=== PATIENT | female | born 1930 | race Caucasian/White ===

== ENCOUNTER 2017-03-05 08:00 | Inpatient (IN) | payer MEDICARE, BC ==
[~2017-03-05] VITALS: Ht 147.3 cm; Wt 60.0 kg
--- NOTE | ~2017-03-05 | CON ---
PATIENT'S NAME: CHLOE HAYNES [facility] AGE: 86 Y [address] ROOM: [address] [address] LOCATION: [facility] [place] ADMIT DATE: 03/05/2017 Consultation DISCHARGE DATE: FAMILY PHYSICIAN: Renetta Melgoza DO ATTENDING PHYSICIAN: KPAIL QUINTERO DATE OF CONSULTATION: 03/06/2017 REFERRING PHYSICIAN: Estevan Nguyen MD CHIEF COMPLAINT: Cholangitis. HISTORY OF PRESENT ILLNESS: Chloe Haynes is an 86-year-old female who was transferred to [facility] yesterday from [place] with findings of cholangitis. The patient states that on FridayMarch 04 around 7 p.m. she started having pain across the upper abdomen, it wrapped around into her back. The pain kept getting worse. She vomited twice. She subsequently called her son and was taken to the [facility]. In [place], her lab work showed white blood cell count 14.7, hemoglobin 13.7, total bilirubin of 1.4, alkaline phosphatase 122, AST 1371, ALT 799. She had cardiac enzymes that were normal. She had a CT scan of the abdomen and pelvis that showed a 7.3 mm stone within the distal common bile duct, with dilatation of the common bile duct measuring up to 12 mm. There was some intrahepatic biliary dilatation, biliary ductal dilatation as well. Additional larger stone was present within the gallbladder. No pericholecystic fluid was seen. There was an incidental finding of a small hiatal hernia. There was also a 5.7 x 4.8 mm subpleural ground-glass left lower lobe pulmonary nodule. The patient was transferred to [facility] for Gastroenterology and surgical evaluation. The patient did undergo an ERCP yesterday. Stones were noted in the common bile duct. A stent was placed. The patient had received high-dose aspirin on admission in [place] with concerns for possible [place] and therefore the sphincterotomy could not be extended in order to get the stones removed. The patient states that she had feeling well now. She denies any pain. Denies any nausea or vomiting. Now that she knows that she has gallstones, she believes that she has had some problems in the past mostly with indigestion. She states that it would never lasts very long. She never had severe pain like this. She has never noticed jaundice. The patient's daughter states that Dr. Mix had recommended repeating the ERCP in a few weeks with stone removal followed by laparoscopic cholecystectomy at that time. PAST MEDICAL HISTORY: PATIENT'S NAME: CHLOE HAYNES [facility] AGE: 86 Y [address] ROOM: [place] [address] LOCATION: [facility] ADMIT DATE: 03/05/2017 Consultation DISCHARGE DATE: FAMILY PHYSICIAN: Renetta Melgoza DO ATTENDING PHYSICIAN: KAPIL QUINTERO ALLERGIES: NONE. MEDICATIONS: Include, 1. Norvasc 10 mg p.o. q.h.s. 2. Artificial Tears one drop ophthalmic b.i.d. p.r.n. dry eyes. 3. Vitamin D3 1000 units p.o. daily. 4. Aspirin low-dose 81 mg p.o. q.h.s. 5. PreserVision one capsule p.o. b.i.d. 6. Erie half to one tablet p.o. b.i.d. p.r.n. pain. 7. Lotensin 20 mg p.o. q.h.s. 8. Amoxicillin 2000 mg p.o. one time p.r.n. dental prophylaxis. 9. Centrum Silver 1 tablet p.o. b.i.d. 10. Fish oil 1200 mg p.o. daily. 11. Biotin 5000 mcg p.o. daily. 12. Flaxseed oil 1000 mg p.o. daily. 13. Magnesium oxide 400 mg p.o. daily. 14. Tylenol extra-strength 250 mg p.o. b.i.d. p.r.n. pain. 15. Advil 200 mg p.o. b.i.d. p.r.n. pain. 16. MiraLAX 17 g p.o. daily. ILLNESSES: Include hypertension, arthritis with chronic back pain that required a steroid injection a couple weeks ago. She had a small skin cancer removed from her face. She also has macular degeneration. OPERATIONS: Include, 1. Left total hip in September 2012 after a fracture. 2. Cataracts. 3. Tubal ligation. 4. ERCP. The patient has never had a colonoscopy. SOCIAL HISTORY: The patient is an 86-year-old female, who lives alone in her own house. She has family nearby. She is a lifetime nonsmoker and does not consume alcohol. FAMILY HISTORY: Mother had a stroke. No family history of cancer. REVIEW OF SYSTEMS: The patient denies any recent coughs or colds. No shortness of breath or chest pain. Denies any prior abdominal pain. Her bowels tend to be more PATIENT'S NAME: CHLOE HAYNES [facility] AGE: 86 Y [address] ROOM: [address] [place] [id number] LOCATION: [facility] ADMIT DATE: 03/05/2017 Consultation DISCHARGE DATE: FAMILY PHYSICIAN: Renetta Melgoza DO ATTENDING PHYSICIAN: KAPIL QUINTERO constipated, but gets along well, taking MiraLAX daily. No pain, frequency, urgency of urination. PHYSICAL EXAMINATION: VITAL SIGNS: Temperature is 97.6, T-max was 101.3 on admission, blood pressure 126/65, pulse 57, respirations 14. GENERAL: An 86-year-old female, who is alert, oriented, pleasant, cooperative. She does wear glasses. EYES EARS, NOSE, AND THROAT: Otherwise grossly normal. LUNGS: Clear. HEART: Regular. ABDOMEN: Bowel sounds are present. Abdomen is mildly distended. It is soft and nontender. No masses are noted. She has a small scar just below the umbilicus from a tubal ligation. NEURO: The patient appears to move all extremities equally. LAB WORK: Today shows white blood cell count down to 22.8 from 37.1 yesterday, hemoglobin 11.3, hematocrit 34.0, platelets 184. CMP: Sodium 142, potassium 4.1, chloride 108, CO2 27, glucose 106, BUN 14, creatinine 0.7, total bilirubin is up to 3.2 from 2.4 yesterday, alkaline phosphatase 116, AST 535, ALT 828, procalcitonin is 7.23. ASSESSMENT: An 86-year-old female with, 1. Cholangitis status post ERCP with stent placement, but unable to remove common bile duct stones. 2. Cholelithiasis. 3. Hypertension. SUMMARY: I discussed with the patient, recommendations for removal of the gallbladder. I discussed with her that we will await Gastroenterology's recommendations in regard to have the repeat ERCP followed by laparoscopic cholecystectomy. I discussed the operation along with the expected postoperative recovery. I expect that she will be able to go home either the same day or the next day following the procedure. I discussed the risks of bleeding, infection, injury to other structures including the bowel or common bile duct. I also discussed the risk for bile leak. Discussed risks for heart problems, lungs problems, etc. I discussed potential side effect of loose stools after having gallbladder removed. Again, we will await gastroenterology decision on timing of the repeat ERCP and will coordinate removal of the gallbladder accordingly. The patient's questions and concerns were addressed. Dr. Nguyen will be evaluating the patient momentarily, is involved in assessment and plan and is available for supervision. PATIENT'S NAME: CHLOE HAYNES [facility] AGE: 86 Y [address] ROOM: [place] [address] LOCATION: [facility] ADMIT DATE: 03/05/2017 Consultation DISCHARGE DATE: FAMILY PHYSICIAN: Renetta Melgoza DO ATTENDING PHYSICIAN: KAPIL QUINTERO ANNI MEIER PA-C FOR MD ANASTASIYA SALAZAR/niurka /[id number] d: 03/06/17 1253 t: 03/13/17 1944, CONSULTATION REPORT
--- NOTE | ~2017-03-05 | CON ---
PATIENT'S NAME: JAMES CARBAJAL [facility] AGE: 86 Y [address] ROOM: [address] [address] LOCATION: [facility] [place] ADMIT DATE: 03/05/2017 Consultation DISCHARGE DATE: FAMILY PHYSICIAN: Renetta Melgoza DO ATTENDING PHYSICIAN: KAPIL QUINTERO DATE OF CONSULTATION: 03/05/2017 REFERRING PHYSICIAN: Estevan Nguyen MD REFERRING PROVIDER: Kapil Quintero MD. REASON FOR CONSULTATION: Choledocholithiasis, cholangitis. HISTORY OF PRESENT ILLNESS: This is a very pleasant, 86-year-old female, who was recently transferred from [facility]. The patient's states that over the past "few days" she began having significant lower back pain. This intensified earlier this morning that she states the pain wrapped around to her upper abdomen, located in her right and upper left quadrant as well as her mid epigastric area. She denied any fever at home, though when she was evaluated in the emergency room at [place], she was febrile there. She did complain of some mild chills. Denies any associated nausea or vomiting. On evaluation at the emergency room in [place], the patient was found to have significantly elevated liver function test including an ALT of 799, AST of 1371, alkaline phosphatase was elevated at 122, and total bilirubin was slightly elevated at 1.4. The patient's white blood cell count was also elevated at 14.7 and hemoglobin was stable. The patient then underwent a CT abdomen and pelvis that did show a small hiatal hernia and a 7.3 mm stone located in the distal common bile duct with secondary dilation of the common bile duct. There was also intrahepatic ductal dilation seen with additional cholelithiasis. The patient was transferred to [facility] for further evaluation. The patient was seen and examined. She denies any acute nausea, vomiting, fever, or chills at this time. On examination and on admission to [facility], she did have a fever of 101.3. She did receive a dose of Zosyn prior to transfer from [facility]. The patient states that the pain has slightly improved since admission in the assistance of pain medication. The patient denies any acute chest pain, chest pressure, or shortness of breath. She did receive aspirin in 324 mg initially around 4:30 this morning while at the emergency room as initially they thought this may be cardiac related. She denies any blood thinners at home as well. PAST MEDICAL HISTORY: PATIENT'S NAME: JAMES CARBAJAL [facility] AGE: 86 Y [address] ROOM: [id number] [place], [place] [address] LOCATION: [facility] ADMIT DATE: 03/05/2017 Consultation DISCHARGE DATE: FAMILY PHYSICIAN: Renetta Melgoza DO ATTENDING PHYSICIAN: KAPIL QUINTERO Depression, hypertension, arthritis, history of fractures including ORIF of the left hip, abnormal liver function tests, choledocholithiasis, cholelithiasis, and migraines. PAST SURGICAL HISTORY: Left total hip in September 2012 and right cataract removed. SOCIAL HISTORY: The patient denies any tobacco use or illicit drug use. The patient is and lives alone. Denies any ongoing toxic habits. FAMILY HISTORY: The patient's mother had a massive CVA and hypertension. The patient's father did not have any significant health problems. The patient's sister in a motor vehicle accident. She denies any known family history of gastrointestinal diseases to her knowledge. ALLERGIES: NO KNOWN MEDICATION ALLERGIES. CURRENT MEDICATIONS: Please refer to the medication administration record. REVIEW OF SYSTEMS: All-point review of systems was completed, all were negative except for those identified in the history of present illness. PHYSICAL EXAMINATION: GENERAL: A very pleasant, 86-year-old female, lying in bed, who appears to be in no acute distress. VITAL SIGNS: Temperature 101.3, blood pressure 143/64, oxygen saturations 92%, and pulse 73. SKIN: [place], warm, dry. No jaundice. HEENT: Head is normocephalic and atraumatic. Pupils are equal, round, and reactive to light. Sclerae are clear, mildly icteric. Oral mucosa is pink and moist. No thyromegaly. NECK: Soft and supple. CARDIOVASCULAR: Normal S1, S2. RESPIRATORY: Respirations even and unlabored. LUNGS: Clear to auscultation. Slightly diminished in the bilateral lobes. ABDOMEN: Soft, round, and mildly distended. Bowel sounds are positive x4 quadrants. Tender throughout, specifically in the upper and lower quadrants. MUSCULOSKELETAL: No muscle weakness or atrophy. EXTREMITY: No edema. NEUROLOGIC: Grossly nonfocal. PATIENT'S NAME: JAMES CARBAJAL [facility] AGE: 86 Y [address] ROOM: [address] [place], [place] [address] LOCATION: [facility] [place] ADMIT DATE: 03/05/2017 Consultation DISCHARGE DATE: FAMILY PHYSICIAN: Renetta Melgoza DO ATTENDING PHYSICIAN: KAPIL QUINTERO LABORATORIES AND DIAGNOSTICS: Laboratory obtained at the outside facility at [facility] show white blood cell count of 14.7, hemoglobin 13.7, hematocrit of 41.7, and platelet of 238. Chemistry panel includes a CO2 of 26.9, BUN of 16 creatinine 0.7, glucose of 171, calcium of 8.6, AST elevated at 1371, ALT of 799, alkaline phosphatase of 122, total bilirubin 1.4, albumin of 4.0, sodium 137, potassium 3.4, and chloride of 100. Cardiac enzymes at the outside facility were negative. CT was also completed showing a 7.3 mm stone in the distal common bile duct with secondary dilation of the CBD as well as intrahepatic ductal dilation. Additional cholelithiasis is present as well as a small hiatal hernia. There was a 5.7 x 4.8 mm subpleural left lower lobe ground-glass noncalcified nodule. Laboratory obtained at [facility] is currently pending at this time. ASSESSMENT AND PLAN: Again, this is a very pleasant, 86-year-old female, who was transferred from [facility] with cholangitis secondary to known choledocholithiasis. The patient was given Zosyn prior to transfer. She will begin on Invanz at this time. Secondary to her elevated liver function tests, suspected cholangitis, as well as CT findings, the patient will need to undergo an endoscopic retrograde cholangiopancreatography rather soon for clearance of the common bile duct stone and to relieve obstruction. The patient did receive aspirin this morning secondary to initial thought for cardiac workup. A stent may only be placed to the common bile duct, though this will be determined intraoperatively. Risks, benefits, and alternatives were discussed with the patient as well as the patient's family per Dr. Billy Mix. Further recommendations to be given status post endoscopic retrograde cholangiopancreatography. Thank you for this consultation. GUNJAN HATFIELD, GAYATHRI FOR MD GABRIELLA ALCANTARA/jackelinl /[id number] d: 03/05/17 2314 t: 03/17/17 1351, CONSULTATION REPORT
--- NOTE | ~2017-03-05 | HP ---
PATIENT'S NAME: SOLOMON [facility] AGE: 86 Y [address] ROOM: [place] [address] LOCATION: [facility] [place] ADMIT DATE: 03/05/2017 History & Physical DISCHARGE DATE: FAMILY PHYSICIAN: Renetta Melgoza DO ATTENDING PHYSICIAN: KAPIL QUINTERO DATE OF SERVICE: CHIEF COMPLAINT: Abdominal pain. HISTORY OF PRESENT ILLNESS: This is an 86-year-old lady with a past medical history only significant for hypertension, presented to the [place] [facility] with abdominal pain, which started yesterday, located in the epigastrium, in the right upper quadrant, pressure-like, constant in nature, acute in onset, rated 8/10, relieved with morphine, down to 4/10, associated with nausea and two episodes of nonbloody, nonbilious emesis. Also, associated with fever and chills. Not associated with any constipation or lightening of stools. On further inquiry, she said she does have some shortness of breath secondary to sinus problems, which have been a chronic problem. Denies any chest pain, any palpitations, any dizziness, any headache, any trouble swallowing, but does complain of excessive thirst. She does not complain of any new PND, orthopnea, or leg swelling. REVIEW OF SYSTEMS: All other systems reviewed and were negative except for what is mentioned in the HPI. ALLERGIES: NO KNOWN DRUG ALLERGIES. PAST MEDICAL HISTORY: 1. Hypertension. 2. Hip surgery. MEDICATIONS: 1. Tylenol. 2. Amlodipine. 3. Aspirin. 4. Benazepril. 5. Biotin. 6. Vitamin D. 7. Fish oil. 8. Flaxseed. PATIENT'S NAME: SOLOMON [facility] AGE: 86 Y [address] ROOM: [place] [id number] LOCATION: [facility] [place] ADMIT DATE: 03/05/2017 History & Physical DISCHARGE DATE: FAMILY PHYSICIAN: Renetta Melgoza DO ATTENDING PHYSICIAN: KAPIL QUINTERO 9. Daisetta. 10. Ibuprofen. 11. Magnesium oxide. 12. Multivitamins. SOCIAL HISTORY: Lives in [place] by herself. Never a smoker. No alcohol or drug abuse. FAMILY HISTORY: Significant for mom dying from massive intracerebral bleed. PHYSICAL EXAMINATION: VITAL SIGNS: Temperature 101.3, blood pressure 143/64, heart rate of 73, saturating 92% on room air. GENERAL: No acute distress, alert and oriented x3. HEENT: Head is atraumatic, normocephalic. Eyes, positive icterus. No pallor. Oropharynx, dry mucous membranes. CARDIOVASCULAR: S1 and S2. No murmurs, gallops, or rubs. LUNGS: Clear to auscultation bilaterally. ABDOMEN: Soft, tender in the epigastrium as well as right upper quadrant. Rebound tenderness present. Negative Coleman sign. Bowel sounds are present. EXTREMITIES: No clubbing, cyanosis, or edema. PSYCH: Normal affect, mood, and speech. MUSCULOSKELETAL: No muscle tenderness or joint swelling noted. LYMPHATICS: No lymphadenopathy or lymphangitis noticed. ENDOCRINE: No cushingoid features or thyromegaly present. NEUROLOGIC: Cranial nerves 2 through 12 intact. No motor sensory deficit. LABORATORY DATA: Lab work from outside facility showed white count of 14. BMP was remarkable for potassium of 3.4. Her AST was 1371, and ALT was 799. Alkaline phosphatase being 122 and bilirubin of 1.4. A CAT scan of the abdomen was done, which was positive for cholelithiasis as well as stone in the CBD, with CBD dilatation of 7.6 mm, with intrahepatic as well as extrahepatic dilatation. Chest x-ray was done, which did not reveal any acute intrathoracic changes. EKG showed normal sinus rhythm without any acute ST-T wave changes. ASSESSMENT AND PLAN: 1. Acute cholangitis. 2. Biliary obstruction. 3. Elevated liver enzymes. 4. Cholelithiasis. PATIENT'S NAME: JAMES CARBAJAL [facility] AGE: 86 Y [address] ROOM: [address] [address] LOCATION: [facility] [place] ADMIT DATE: 03/05/2017 History & Physical DISCHARGE DATE: FAMILY PHYSICIAN: Renetta Melgoza DO ATTENDING PHYSICIAN: KAPIL QUINTERO 5. Essential hypertension. 6. Hypokalemia. PLAN: We are going to admit this lady for inpatient. Aggressive intravolume resuscitation will be started along with ertapenem. Lipase level and amylase levels will be obtained. Lactic acid and procalcitonin have been ordered. GI consultation has been obtained for possible ERCP versus MRCP to correct biliary obstruction further. We are going to replace her potassium. Keep her n.p.o. for now. Provide adequate pain as well as nausea control. SCDs for DVT prophylaxis for now. General Surgery consultation for cholecystectomy can be decided tomorrow after the GI consultation. The patient is DNR/DNI. MD IRENE ALANIZ/niurka /[id number] D: [id number] T: [id number] HISTORY & PHYSICAL
--- NOTE | ~2017-03-05 | DS ---
PATIENT'S NAME: JAMES CARBAJAL [facility] AGE: 86 Y [address] ROOM: [address] [place], [place] [address] LOCATION: [facility] ADMIT DATE: 03/05/2017 Discharge Summary DISCHARGE DATE: 03/13/2017 FAMILY PHYSICIAN: Renetta Melgoza DO ATTENDING PHYSICIAN: Julio Cesar Tom ADMISSION DIAGNOSIS: Sepsis secondary to acute cholangitis. DISCHARGE DIAGNOSIS: Sepsis secondary to acute cholangitis plus choledocholithiasis. SECONDARY DIAGNOSES: Elevated transaminases, cholelithiasis, essential hypertension, hypokalemia, postoperative pain, and pancreatitis post ERCP. PROCEDURE PERFORMED: ERCP on March 06 as well as laparoscopic cholecystectomy on March 11. PRESENTING COMPLAINT: The patient is a very pleasant and high functioning 86- year-old female, who presented on March 06 with 1 to 2 days of right upper quadrant abdominal pain as well as fevers and chills. She denied any other contributing symptoms. HOSPITAL COURSE: On admission, the patient was found to be febrile to 101.3 with stable heart rate and blood pressure, found to have a white blood cell count of 37, potassium of 3.4, AST 1371, ALT 799, alkaline phosphatase 122, bilirubin 1.4. CAT scan of the abdomen showed cholelithiasis as well as a common bile duct stone and CBD dilation of 7.6 mm with intrahepatic and extrahepatic dilation. The patient was admitted and started on IV ertapenem as well as IV fluid resuscitation for sepsis. An initial lipase was 1099. Lactate 1.5 on admission. Upon admission given findings of choledocholithiasis, GI was consulted. On the , the patient underwent ERCP with inability to retrieve stone and subsequently course was complicated by post-ERCP pancreatitis with worsening epigastric abdominal pain. The patient was monitored on IV antibiotics as well as fluids over the next several days with slow and steady improvement in the symptoms. General Surgery was also consulted and subsequently performed laparoscopic cholecystectomy on March 11. Postoperative course was uneventful. The patient is noted to continue to have common bile duct stone and a stent was placed during the ERCP. Plans at this time are for continued recovery from cholecystectomy, followed subsequently by repeat GI evaluation as an outpatient in [place] at [facility] for stent removal and stone removal. At the time of discharge, the patient has been off antibiotics for 24 hours, remains afebrile, and doing well. Postop tenderness is improving as expected. We will continue home medications for essential hypertension and arrange GI followup. PATIENT'S NAME: JAMES CARBAJAL [facility] AGE: 86 Y [address] ROOM: [address] [place], [place] [address] LOCATION: [facility] ADMIT DATE: 03/05/2017 Discharge Summary DISCHARGE DATE: 03/13/2017 FAMILY PHYSICIAN: Renetta Melgoza DO ATTENDING PHYSICIAN: Julio Cesar Tom CONDITION: Stable. PHYSICAL EXAMINATION: VITAL SIGNS: Most recent vital signs at the time of discharge: Temperature 98.4, pulse 73, respiratory rate 18, blood pressure 156/69, and saturating 96% on room air. GENERAL: Alert and oriented, pleasant, up in chair, comfortable. HEAD: Normocephalic, atraumatic. CARDIOVASCULAR: No carotid bruit. Heart regular rate and rhythm. No murmurs appreciated. 2+ bilateral lower extremity pulses. Faint abdominal bruit appreciated. ABDOMEN: Soft. Minimally tender to moderate palpation diffusely, worse in the right upper quadrant. Laparoscopic incisions clean and dry, bandaged. EXTREMITIES: Without edema bilaterally. MOST RECENT LABS PRIOR TO DISCHARGE: Include white count, which has improved from 37 on arrival to 11.2. Blood cultures were without growth during stay. Hypokalemia improved to 3.7 at the time of discharge. Creatinine is stable at 0.5. Alkaline phosphatase 100, AST 19, ALT 72, and total bilirubin 0.8. DISPOSITION: To [facility] bed today. DISCHARGE MEDICATIONS: Per medication reconciliation. Will not be discharged on antibiotics. No significant changes to home meds. DISCHARGE INSTRUCTIONS: Advance diet as tolerated. Activity as tolerated. PT at facility with OT as well. FOLLOW-UP: with Dr. Nguyen in Surgery in 2 to 3 weeks and PCP in 1 to 2 weeks. TIME: I spent greater than 35 minutes on the date of discharge coordinating discharge plans. MD DANO BRUMFIELD/niurka /[id number] CC: Renetta Melgoza DO d: 03/14/17 0409 t: 03/14/17 1523, DISCHARGE SUMMARY
--- NOTE | ~2017-03-05 | OR ---
PATIENT'S NAME: JAMES CARBAJAL [facility] AGE: 86 Y [address] ROOM: [place] [address] LOCATION: GPCU ADMIT DATE: 03/05/2017 OR/Procedure Report DISCHARGE DATE: FAMILY PHYSICIAN: Renetta Melgoza DO ATTENDING PHYSICIAN: KAPIL QUINTERO SURGEON: Estevan Nguyen MD INTELLIGENCE SUPPORT OFFICER: Shyann Zeng PA-C DATE OF PROCEDURE: 03/11/2017 PREOPERATIVE DIAGNOSIS: Cholelithiasis with choledocholithiasis, status post stent placement. POSTOPERATIVE DIAGNOSIS: Cholelithiasis with choledocholithiasis, status post stent placement. PROCEDURE PERFORMED: Laparoscopic cholecystectomy. FINDINGS: The gallbladder had a large number of stones present with a single very large stone. ESTIMATED BLOOD LOSS: Less than 20 mL. COMPLICATIONS: None. INDICATIONS: The patient is an 86-year-old female, who presented with signs and symptoms of cholangitis. She had an ERCP and stent placement. I was asked to perform cholecystectomy. We discussed this versus waiting. We discussed the risks, benefits, and alternatives. Ultimately, she wished to proceed with surgery. DESCRIPTION OF PROCEDURE: The patient was taken into the operating room. She was supine, given IV sedation. The abdomen was prepped with ChloraPrep and sterilely draped. Local anesthetic was infiltrated just superior to the umbilicus. A transverse incision was created. The abdomen was elevated. Veress needle was inserted. Pneumoperitoneum was induced. Following this, a 5-mm trocar was inserted followed by insertion of the camera. There was no injury from initial trocar placement. Three more trocars were then positioned, an 11 mm in epigastric and two 5 mm right subcostal ports. Skin overlying the peritoneum was first anesthetized prior to making these incisions. All 3 trocars were inserted under direct visualization. The gallbladder was then grasped, it was elevated over the dome of the liver. The infundibulum was grasped and retracted inferiorly and laterally to expose the Calot triangle. The cystic duct and artery were dissected around circumferentially. A critical window was able to be obtained over this. These structures were then doubly clipped and divided. The gallbladder was then PATIENT'S NAME: JAMES CARBAJAL [facility] AGE: 86 Y [address] ROOM: [address] [address] [facility] ADMIT DATE: 03/05/2017 OR/Procedure Report DISCHARGE DATE: FAMILY PHYSICIAN: Renetta Melgoza DO ATTENDING PHYSICIAN: KAPIL QUINTERO removed from liver bed using electrocautery. This was grasped and brought up to the epigastric port site. We attempted to break the stones, however, there was a very large stone present that we were unable to break. We increased the size of our incision in order to deliver this. This was then passed off as specimen. The operative field was inspected. It appeared hemostatic. Clips appeared to be in good position on the cystic duct and artery. The area was irrigated. Fluid was removed. The pneumoperitoneum was then released. The trocars were removed. The trocar sites appeared hemostatic. The fascia of the epigastric port site was approximated with 0 Vicryl suture followed by skin closure of all 4 port sites with 4-0 Monocryl suture. Steri-Strips and sterile dressings were placed. The patient was extubated and sent to recovery in good condition. ESTEVAN MD DAYTON MCNEAL/niurka /[id number] d: 03/11/17 1357 t: 03/13/171946, OPERATIVE SUMMARY
[2017-03-05] MEDS ORDERED: ARTIFICIAL TEAR15 ML OPHTH (09:21)
[2017-03-05] MEDS ORDERED: NORVASC10 MG PO (09:21)
[2017-03-05] MEDS ORDERED: ASPIRIN LO-DOSE81 MG PO (09:22)
[2017-03-05] MEDS ORDERED: PRESERVISION A1 EACH PO (09:22)
[2017-03-05] MEDS ORDERED: VITAMIN D1000 UNIT PO (09:22)
[2017-03-05] MEDS ORDERED: NORCO 5-325 TA1 EACH PO (09:23)
[2017-03-05] MEDS ORDERED: LOTENSIN20 MG PO (09:24)
[2017-03-05] MEDS ORDERED: AMOXICILLIN500 MG PO (09:24)
[2017-03-05] MEDS ORDERED: CENTRUM SILVER1 EAC1 PO (09:25)
[2017-03-05] MEDS ORDERED: FISH OIL 1,2001 EACH PO (09:25)
[2017-03-05] MEDS ORDERED: BIOTIN5000 MCG PO (09:25)
[2017-03-05] MEDS ORDERED: FLAX SEED OIL1000 MG PO (09:26)
[2017-03-05] MEDS ORDERED: MAG-OX-400(241400 MG PO (09:26)
[2017-03-05] MEDS ORDERED: ADVIL200 MG PO (09:27)
[2017-03-05] MEDS ORDERED: TYLENOL EXTRA500 MG PO (09:27)
[2017-03-05] MEDS ORDERED: MIRALAX17 GM PO (09:28)
--- NOTE | 2017-03-05 09:50 | NUR ---
Pt is 86 y/o female admit for gallstones for hospitalist. States no allergies. Resides at home by herself. Hx mac.degeneration,htn,sinus congestion,arthritis, constipation. Came via ambulance from [facility]. Pt alert and oriented x3. Family at bedside.
[2017-03-05 10:06] LABS: HEMATOCRIT 39.7 % (30.0-46.0); HEMOGLOBIN 13.2 g/dL (10.0-15.0); MCH 28.3 pg (27.0-34.0); MCHC 33.2 gm/dL (32.0-36.5); PLATELET COUNT 242 K/uL (150-450); RBC 4.67 M/uL (3.00-5.00); RDW-CV 13.9 % (11.9-14.6); WBC 23.1 K/uL (4.0-11.0)
[2017-03-05 10:30] LABS: ALBUMIN 3.2 gm/dL (3.5-5.0); ANION GAP 13.3 (10.0-19.0); CALCIUM 8.6 mg/dL (8.5-10.5); CREATININE 0.9 mg/dL (0.5-1.1); POTASSIUM 3.3 mMol/L (3.7-5.1); TOTAL BILIRUBIN 2.4 mg/dL (0.0-1.5); TOTAL PROTEIN 6.5 g/dL (6.0-8.4)
[2017-03-05 11:04] LABS: LYMPHOCYTE # 0.5 K/uL (0.8-4.0); LYMPHOCYTE % 2 %; MONOCYTE # 0.7 K/uL (0.0-1.0); SEGMENTED NEUTROPHIL # 14.8 K/uL (1.8-7.8); SEGMENTED NEUTROPHIL % 64 %
[2017-03-05 11:05] LABS: ABSOLUTE NEUTROPHIL CT (ANC) 21.7 K/uL (1.8-7.8); BANDED NEUTROPHIL # 6.9 K/uL (0.0-0.1); BANDED NEUTROPHILS % 30 %
[2017-03-05 12:03] LABS: INR - (THERAPEUTIC) 0.98 (0.92-1.07); PROTIME 10.3 SECONDS (9.8-11.4)
[2017-03-05 16:15] LABS: HEMATOCRIT 37.9 % (30.0-46.0); HEMOGLOBIN 12.7 g/dL (10.0-15.0); MCH 28.6 pg (27.0-34.0); MCHC 33.5 gm/dL (32.0-36.5); MCV 85.4 fl (83.0-98.0); MPV 10.5 fl (9.4-12.4); PLATELET COUNT 229 K/uL (150-450); RBC 4.44 M/uL (3.00-5.00)
[2017-03-05 16:17] LABS: WBC 36.6 K/uL (4.0-11.0)
--- NOTE | 2017-03-05 16:46 | NUR ---
Significant event: Patient arrived to floor at 0840. Is alert and oriented. Is hard of hearing, does not have hearing aides with her. VSS other than temp of 101.3. IV to left wrist with lactated ringers at 150, after 1 liter bolus. is repeating labs this evening. Was admitted for abdominal pain/epigastric pain. Went for an ERCP this morning and stent was placed. Is on clear liquids and advance as tolerated. Has been sleepy since getting back to floor. Dghtr will be back later to spend the night. Pt is a one assist, recommend using walker for steadiness. Normally uses cane at home. Has had no complaints of pain since arrival, no diarrhea, no nausea/vomiting. Cooperative with cares.
[2017-03-05 17:05] LABS: ABSOLUTE NEUTROPHIL CT (ANC) 35.1 K/uL (1.8-7.8); BANDED NEUTROPHIL # 6.6 K/uL (0.0-0.1); BANDED NEUTROPHILS % 18 %; LYMPHOCYTE # 0.4 K/uL (0.8-4.0); LYMPHOCYTE % 1 %; MONOCYTE # 1.1 K/uL (0.0-1.0); SEGMENTED NEUTROPHIL # 28.6 K/uL (1.8-7.8); SEGMENTED NEUTROPHIL % 78 %
[2017-03-05 19:12] LABS: HEMATOCRIT 36.5 % (30.0-46.0); HEMOGLOBIN 12.2 g/dL (10.0-15.0); MCH 28.7 pg (27.0-34.0); MCHC 33.4 gm/dL (32.0-36.5); MCV 85.9 fl (83.0-98.0); MPV 10.6 fl (9.4-12.4); PLATELET COUNT 213 K/uL (150-450); RBC 4.25 M/uL (3.00-5.00); RDW-CV 14.3 % (11.9-14.6)
[2017-03-05 19:16] LABS: WBC 37.1 K/uL (4.0-11.0)
[2017-03-05 20:15] LABS: ABSOLUTE NEUTROPHIL CT (ANC) 36.4 K/uL (1.8-7.8); BANDED NEUTROPHIL # 7.8 K/uL (0.0-0.1); BANDED NEUTROPHILS % 21 %; LYMPHOCYTE # 0.4 K/uL (0.8-4.0); LYMPHOCYTE % 1 %; MONOCYTE # 0.7 K/uL (0.0-1.0); SEGMENTED NEUTROPHIL # 28.6 K/uL (1.8-7.8); SEGMENTED NEUTROPHIL % 77 %
--- NOTE | 2017-03-06 05:01 | NUR ---
Significant Event: ALERT AND ORIENTATED X3 AMBULATES WITH GB WALKER ONE ASSIST. VSS WNL. ON RA. HARD OF HEARING DID NOT BRING HEARING AIDS. IV TO L WRIST LR RUNNING AT 150. DAUGHTER IN ROOM WITH PAITENT. NO COMPLAINTS OF PAIN DISCOMFORT NAUSEA. PLAN IS TO GO HOME TODAY. Follow up:
[2017-03-06 05:46] LABS: BASOPHIL % 0.1 %; HEMOGLOBIN 11.3 g/dL (10.0-15.0); IMMATURE GRANULOCYTE # 0.2 K/uL (0.0-0.3); IMMATURE GRANULOCYTE % 0.8 %; LYMPHOCYTE # 1.1 K/uL (0.8-4.0); LYMPHOCYTE % 4.9 %; MCH 28.8 pg (27.0-34.0); MCHC 33.2 gm/dL (32.0-36.5); MCV 86.5 fl (83.0-98.0); MONOCYTE # 0.8 K/uL (0.0-1.0); MONOCYTE % 3.6 %; MPV 10.8 fl (9.4-12.4); NEUTROPHIL # (ANC) 20.7 K/uL (1.8-7.8); NEUTROPHIL % 90.6 %; NRBC % 0 /100WBC (0-0.00); PLATELET COUNT 184 K/uL (150-450); RBC 3.93 M/uL (3.00-5.00); RDW-CV 14.3 % (11.9-14.6)
[2017-03-06 05:50] LABS: WBC 22.8 K/uL (4.0-11.0)
[2017-03-06 06:07] LABS: ALBUMIN 2.5 gm/dL (3.5-5.0); ANION GAP 11.1 (10.0-19.0); CALCIUM 8.1 mg/dL (8.5-10.5); CREATININE 0.7 mg/dL (0.5-1.1); POTASSIUM 4.1 mMol/L (3.7-5.1)
[2017-03-06 06:11] LABS: TOTAL BILIRUBIN 3.2 mg/dL (0.0-1.5)
--- NOTE | 2017-03-06 11:10 | NUR ---
Introduced self/role to patient and her daughter Coco. She lives in [place], has [employer]. Denied the need for any DME or HHC. Her daughter is a nurse at [employer], [place] and helps her as needed. Patient is hoping to go home soon and reports will have surgery in a few weeks. 1210 Spoke to Debora Nelson after she spoke with GI. Patient should be discharge home tomorrow and surgery in [place] in the near future.
--- NOTE | 2017-03-06 16:10 | NUR ---
Significant event: Patient is alert and oriented. VSS on room air. IV to left wrist fluids decreased to 75mls. This afternoon patient started having shortness of breath and some audible wheezing. Also temp went up to 100.1. Notified PA and orders received for Lasix x1 and decrease fluids to 75mls/hr and Tylenol for fever greater than 100. Tylenol given at 1500. Rechecked temp at 1600 and was 100.4. Did void a large amount. Will continue to monitor this. Pt is a 1-assist with ambulation. Has eaten and tolerated a regular diet. Drinking well. Cooperative with cares.
--- NOTE | 2017-03-07 04:55 | NUR ---
Significant Event: PATIENT IS ALERT AND ORIENTATED VSS ON 1 L O2. IV TO L WRIST FLUIDS AT 75ML/HR. AFEBRILE VSS WNL. CONTINUES TO HAVE SOB WITH AUDIBLE WHEEZES. NO COMPLAINTS OF PAIN OR DISCOMFORT. AMBULATES WITH GB WALKER ONE ASSIST. COOPERATIVE WITH CARES. Follow up:
[2017-03-07 09:39] LABS: BASOPHIL % 0.2 %; EOSINOPHIL # 0.1 K/uL (0.0-0.5); EOSINOPHIL % 0.5 %; HEMOGLOBIN 12.1 g/dL (10.0-15.0); IMMATURE GRANULOCYTE # 0.1 K/uL (0.0-0.3); IMMATURE GRANULOCYTE % 0.6 %; LYMPHOCYTE # 1.2 K/uL (0.8-4.0); LYMPHOCYTE % 6.9 %; MCH 28.9 pg (27.0-34.0); MCHC 33.6 gm/dL (32.0-36.5); MCV 86.1 fl (83.0-98.0); MONOCYTE # 0.3 K/uL (0.0-1.0); MPV 10.8 fl (9.4-12.4); NEUTROPHIL # (ANC) 15.5 K/uL (1.8-7.8); NEUTROPHIL % 89.8 %; NRBC % 0 /100WBC (0-0.00); PLATELET COUNT 169 K/uL (150-450); RBC 4.18 M/uL (3.00-5.00); RDW-CV 14.5 % (11.9-14.6)
[2017-03-07 09:46] LABS: WBC 17.2 K/uL (4.0-11.0)
[2017-03-07 09:59] LABS: ALBUMIN 2.4 gm/dL (3.5-5.0); CALCIUM 8.1 mg/dL (8.5-10.5); CREATININE 0.6 mg/dL (0.5-1.1); TOTAL PROTEIN 5.5 g/dL (6.0-8.4)
[2017-03-07 10:02] LABS: ANION GAP 11.9 (10.0-19.0); POTASSIUM 2.9 mMol/L (3.7-5.1)
--- NOTE | 2017-03-07 16:53 | NUR ---
Significant event: Patient is alert and oriented x3.VSS. on room air. Is SOB with exertion. Does have some audible wheezes. Catheter placed at 1630. IV to left wrist with K+ and Lactated ringers running(200mls/hr). Is on clear liquid diet. Has a history of hypertension, last b/p was 161/89. Does ambulate with one assist. States she "just doesn't feel good" No nausea. Is tender to upper abd area. Did have some shoulder pain and placed a warm blanket and this gave relief. Pt has order for tylenol for temp greater than 100.0. Her last temp was 100.1 and tylenol was given at 1500. Pt dghtr at bedside. Will be transferring to either PCU or ICU as soon as bed is available. Cooperative with cares.
[2017-03-07 21:22] LABS: ALBUMIN 2.4 gm/dL (3.5-5.0); ALK PHOS 142 IU/L (33-138); ANION GAP 11.6 (10.0-19.0); AST 89 IU/L (10-40); BLOOD UREA NITROGEN 6 mg/dL (6-24); CALCIUM 8.3 mg/dL (8.5-10.5); CHLORIDE 108 mMol/L (96-110); CO2 24 mMol/L (22-32); CREATININE 0.4 mg/dL (0.5-1.1); POTASSIUM 3.6 mMol/L (3.7-5.1); SODIUM 140 mMol/L (135-145); TOTAL BILIRUBIN 1.2 mg/dL (0.0-1.5); TOTAL PROTEIN 5.7 g/dL (6.0-8.4)
[2017-03-07 21:23] LABS: ALT 407 IU/L (12-78)
--- NOTE | 2017-03-08 04:45 | NUR ---
PATIENT ARRIVED TO UNIT AT 2238 PER BED WITH STAFF AND FAMILY AT BEDSIDE. THE PATIENT WAS TRANSFERRED TO A HIGHER LEVEL OF CARE FOR FLUID CHANGES. UPON ARRIVAL PATIENT WAS ALERT AND ORIENTED X3. FOLLOWS COMMANDS. DENIES PAIN, RODRIGUEZ, OR N/T. LUNGS WERE C/D THROUGHOUT ON ROOM AIR. TEMP 98.0-70-16-95%-191/79 (113). MCCRARY CATHETER-CLEAR URINE. PIV IN LEFT WRIST WITH LR INFUSING AT 200.
--- NOTE | 2017-03-08 04:51 | NUR ---
Significant Event: PATIENT IS ALERT AND ORIENTED X3. FOLLOWS COMMANDS. DENIES PAIN, RODRIGUEZ, OR N/T. TEMP HAS VARIED FROM 98.0-100.4. PERRLA. GENERALIZED WEAKNESS. HYPERTENSIVE- SBP 170-200'S- CONTROLLED WITH PRN LABETALOL AND HYDRALAZINE. SR WITH PVC'S. ROOM AIR. CLEAR LIQUID DIET-TAKES PILLS WHOLE WITH WATER. LAST BM 03/07-ACTIVE X4. UP WITH 1A. STRICT I&O'S-MCCRARY CATH. L) WRIST PIV INFUSING LR AT 75. Follow up: CONTINUE TO MONITOR AMYLASE AND LIPASE.
[2017-03-08 05:02] LABS: ALBUMIN 2.3 gm/dL (3.5-5.0); ALK PHOS 138 IU/L (33-138); ANION GAP 11.2 (10.0-19.0); AST 61 IU/L (10-40); BLOOD UREA NITROGEN 6 mg/dL (6-24); CALCIUM 8.1 mg/dL (8.5-10.5); CHLORIDE 106 mMol/L (96-110); CO2 23 mMol/L (22-32); CREATININE 0.3 mg/dL (0.5-1.1); POTASSIUM 3.2 mMol/L (3.7-5.1); SODIUM 137 mMol/L (135-145); TOTAL BILIRUBIN 1.1 mg/dL (0.0-1.5); TOTAL PROTEIN 5.6 g/dL (6.0-8.4)
[2017-03-08 05:03] LABS: ALT 344 IU/L (12-78)
[2017-03-08 08:35] LABS: BASOPHIL % 0.3 %; EOSINOPHIL # 0.1 K/uL (0.0-0.5); EOSINOPHIL % 0.5 %; HEMATOCRIT 36.2 % (30.0-46.0); HEMOGLOBIN 12.1 g/dL (10.0-15.0); IMMATURE GRANULOCYTE # 0.1 K/uL (0.0-0.3); IMMATURE GRANULOCYTE % 0.3 %; LYMPHOCYTE # 1.3 K/uL (0.8-4.0); LYMPHOCYTE % 8.5 %; MCH 28.7 pg (27.0-34.0); MCHC 33.4 gm/dL (32.0-36.5); MCV 85.8 fl (83.0-98.0); MONOCYTE # 0.5 K/uL (0.0-1.0); MONOCYTE % 3.5 %; MPV 12.2 fl (9.4-12.4); NEUTROPHIL # (ANC) 13.1 K/uL (1.8-7.8); NEUTROPHIL % 86.9 %; NRBC % 0 /100WBC (0-0.00); PLATELET COUNT 180 K/uL (150-450); RBC 4.22 M/uL (3.00-5.00); RDW-CV 14.2 % (11.9-14.6)
--- NOTE | 2017-03-08 12:03 | NUR ---
A - PT SCREENED D/T LOS/ADVANCED AGE. ABD PAIN. HT: 58" WT: 135# BMI: 27.3. LABS: K+ 3.2, BUN/CR 6/0.3, ALB 2.3, AST 61, ALT 344, AMYLASE 1458, LIPASE 37061, WBC 15.0. MEDS: LACTATED RINGER, INVANZ, NAUSEA. DIET: CLEAR LIQUID x 1. INTAKE: SIPS. NEEDS: 9049-1336 KCAL (20-25 KCAL/KG), 61-74 G PRO (1-1.2 G/KG), 1840 ML FLUID (30 ML/KG). D - INADEQUATE NUTRIENT INTAKE R/T ALTERED GI FUNCTION AEB COMMON BILE DUCT STONES, CLEAR LIQUID DIET, INTAKE RECORD. I - GOAL FOR INCREASED ORAL INTAKE. WILL ADD ENSURE CLEAR TID. M/E - WILL MONITOR INTAKE AND GI FUNCTION. F/U IN 2-4 DAYS.
--- NOTE | 2017-03-08 15:06 | NUR ---
Significant Event:PT IS AAOX3. [place]. NO C/O OF NUMBNESS OR TINGLING. GENERALIZED WEAKNESS. UP 1A GB WALKER. CLEAR TO CLEAR AND DIMINSIHED LUNG SOUNDS. ACTIVE BS. HAS 1+ EDEMA TO LEGS. ACTIVE BS. ABDOMEN HAS NOT BEEN TENDER THIS SHIFT. IS DISTENDED. IV L) WRIST RUNING. STARTED LISINOPRIL TODAY. GAVE LABETOLOL X1 TODAY. ALSO GAVE 40 MEQ OF POTASSIUM TODAY. DAUGHTER AT BEDSIDE. DEMETRA. Follow up:MONITOR BP AND PULSE
[2017-03-09 05:07] LABS: BASOPHIL # 0.1 K/uL (0.0-0.2); BASOPHIL % 0.6 %; EOSINOPHIL # 0.2 K/uL (0.0-0.5); EOSINOPHIL % 1.5 %; HEMATOCRIT 35.3 % (30.0-46.0); IMMATURE GRANULOCYTE # 0.1 K/uL (0.0-0.3); IMMATURE GRANULOCYTE % 0.6 %; LYMPHOCYTE # 1.9 K/uL (0.8-4.0); LYMPHOCYTE % 17.9 %; MCH 28.6 pg (27.0-34.0); MONOCYTE # 0.7 K/uL (0.0-1.0); MPV 10.7 fl (9.4-12.4); NEUTROPHIL # (ANC) 7.6 K/uL (1.8-7.8); NEUTROPHIL % 72.4 %; NRBC % 0 /100WBC (0-0.00); PLATELET COUNT 200 K/uL (150-450); RDW-CV 13.8 % (11.9-14.6); WBC 10.5 K/uL (4.0-11.0)
--- NOTE | 2017-03-09 07:16 | NUR ---
Significant Event: A/Ox3. Denies numbness/tingling and follows commands without difficulty. Ambulates 1A with gait belt. Denies pain or discomfort throughout shift. Hydralazine given x1 for SBP >180. Other VSS and on room air. Frequently repositions self in bed. Set off bed alarm once due to patient stating she was dreaming. Weller catheter patent with large output. Calm and cooperative with cares. Follow up:
[2017-03-09 12:07] LABS: ALBUMIN 2.2 gm/dL (3.5-5.0); ALK PHOS 129 IU/L (33-138); ALT 209 IU/L (12-78); ANION GAP 13.3 (10.0-19.0); AST 21 IU/L (10-40); BLOOD UREA NITROGEN 6 mg/dL (6-24); CALCIUM 8.8 mg/dL (8.5-10.5); CHLORIDE 109 mMol/L (96-110); CO2 20 mMol/L (22-32); CREATININE 0.4 mg/dL (0.5-1.1); POTASSIUM 3.3 mMol/L (3.7-5.1); SODIUM 139 mMol/L (135-145); TOTAL PROTEIN 5.8 g/dL (6.0-8.4)
[2017-03-09 12:08] LABS: TOTAL BILIRUBIN 0.7 mg/dL (0.0-1.5)
--- NOTE | 2017-03-09 13:31 | NUR ---
Significant Event:PT IS AAOX3. [place]. DID HAVE SOME VISUAL HALLUCINATION THIS MORNING PER FAMILY. BUT WHEN ASSESSED, PT WAS NOT HAVING THEM. NO C/O NUMBNESS OR TINGLING. CLEAR UPPER LOBES CLEAR AND DIMINISHED LOWER LOBES. ON RA. SOB WITH EXERTION. SBP 150-160'S. ACTIVE BS. LARGE BM TODAY. ABDOMEN IS SLIGHTLY DISTENDED. MCCRARY DRAINING LIGHT YELLOW URINE. NO C/O PAIN. ON LOW FAT DIET. IV L) WRIST SL'D. HANDS ON 1A GB WALKER/CANE. DAUGHTER IS HERE FROM [place]. PLANS TO MOVE TO [facility]. Follow up:
--- NOTE | 2017-03-09 17:22 | NUR ---
D:Report recieved from [place], ICU at 1435. Patient arrived at 1445. Patient is alert, oreintated. Family with patient, and personal belongings brought with patient. Oreintated to room, call light, PCU. Pt's daughter, Coco Robbie RN used to work on PCU. Patient has mendoza intact, and has SL intact, and is on room air. P:Monitor patient for pain control
--- NOTE | 2017-03-09 17:26 | NUR ---
Significant Event:Patient has been up in chair. No c/o pain. Is on room air. Has mendoza catheter. Family has been at bedside. PT/OT to see. Follow up:
--- NOTE | 2017-03-10 04:15 | NUR ---
Significant Event: Patient alert, oriented at times. More confused as the shift progressed. Multiple attempts to get out of bed. Alarms on at all times. Confused statements. Redirects at times. Attempted to pull out mendoza. VSS on room air. 2850 urine output from mendoza. Denies pain. Patient has not slept this shift. Cooperative with cares. Follow up: alarms on at all times, continue to monitor
[2017-03-10 05:22] LABS: BASOPHIL # 0.1 K/uL (0.0-0.2); BASOPHIL % 0.7 %; EOSINOPHIL # 0.2 K/uL (0.0-0.5); HEMATOCRIT 38.5 % (30.0-46.0); HEMOGLOBIN 13.2 g/dL (10.0-15.0); IMMATURE GRANULOCYTE # 0.1 K/uL (0.0-0.3); LYMPHOCYTE # 1.9 K/uL (0.8-4.0); LYMPHOCYTE % 17.9 %; MCH 28.6 pg (27.0-34.0); MCHC 34.3 gm/dL (32.0-36.5); MCV 83.5 fl (83.0-98.0); MONOCYTE # 0.9 K/uL (0.0-1.0); MONOCYTE % 8.6 %; MPV 10.4 fl (9.4-12.4); NEUTROPHIL # (ANC) 7.4 K/uL (1.8-7.8); NEUTROPHIL % 69.8 %; NRBC % 0 /100WBC (0-0.00); RBC 4.61 M/uL (3.00-5.00); RDW-CV 13.8 % (11.9-14.6); WBC 10.6 K/uL (4.0-11.0)
[2017-03-10 05:24] LABS: PLATELET COUNT 246 K/uL (150-450)
--- NOTE | 2017-03-10 10:42 | NUR ---
PT MOVED TO NO RISK. FAMILY STATES PT EATING 75-100%. WILL DISCONTINUE ENSURE CLEAR PER FAMILY REQUEST. WILL ASSIST NEEDED.
--- NOTE | 2017-03-10 16:06 | NUR ---
Introduced self and care management services to patient and daughter at bedside. They would like pt to go to [facility] in [place] on discharge. Renetta Melgoza is her primary care provider there. Therapies ordered, will have gallbladder out tomorrow. Will start referral in the morning.
--- NOTE | 2017-03-10 17:28 | NUR ---
Significant Event: pt is to have GB surgery in am. PT amb pt in halls today. SBP elevated again this am but po meds helped, so IV not given. Pt family here with her today. Pt alert and knows place/day/birthday and her hx but says off wall things that don't make sense and sees things. No c/o pain. Pt eats/drinks ok, no c/o nausea. NPO at 0000 for sx. Follow up:
[2017-03-11 04:59] LABS: BASOPHIL # 0.1 K/uL (0.0-0.2); BASOPHIL % 0.6 %; EOSINOPHIL # 0.3 K/uL (0.0-0.5); HEMATOCRIT 37.4 % (30.0-46.0); HEMOGLOBIN 12.8 g/dL (10.0-15.0); IMMATURE GRANULOCYTE # 0.1 K/uL (0.0-0.3); IMMATURE GRANULOCYTE % 1.3 %; LYMPHOCYTE # 2.3 K/uL (0.8-4.0); LYMPHOCYTE % 20.3 %; MCH 28.7 pg (27.0-34.0); MCHC 34.2 gm/dL (32.0-36.5); MCV 83.9 fl (83.0-98.0); MONOCYTE # 0.9 K/uL (0.0-1.0); MONOCYTE % 7.8 %; MPV 10.1 fl (9.4-12.4); NEUTROPHIL # (ANC) 7.5 K/uL (1.8-7.8); NRBC % 0 /100WBC (0-0.00); PLATELET COUNT 266 K/uL (150-450); RBC 4.46 M/uL (3.00-5.00); RDW-CV 13.7 % (11.9-14.6); WBC 11.2 K/uL (4.0-11.0)
[2017-03-11 05:18] LABS: ALBUMIN 2.6 gm/dL (3.5-5.0); ALK PHOS 132 IU/L (33-138); ALT 133 IU/L (12-78); ANION GAP 9.4 (10.0-19.0); AST 22 IU/L (10-40); BLOOD UREA NITROGEN 10 mg/dL (6-24); CALCIUM 8.6 mg/dL (8.5-10.5); CHLORIDE 109 mMol/L (96-110); CO2 23 mMol/L (22-32); CREATININE 0.4 mg/dL (0.5-1.1); MAGNESIUM 2.3 mg/dL (1.8-2.6); POTASSIUM 3.4 mMol/L (3.7-5.1); SODIUM 138 mMol/L (135-145); TOTAL BILIRUBIN 0.7 mg/dL (0.0-1.5); TOTAL PROTEIN 6.2 g/dL (6.0-8.4)
--- NOTE | 2017-03-11 06:38 | NUR ---
Significant Event: Patient initially alert/oriented x3. As the night progressed, patient became increasingly confused and impulsive. She set off the bed alarm multiple times throughout the night. Patient reoriented easily each time. Vital signs have been stable, except for 3rd assessment in which her SBP was 196. 20 mg IVP Labetolol given and her SBP came down to 147. On room air. Denies any pain. NPO since midnight. Follow up: Cholecystectomy today with Dr. Nguyen.
--- NOTE | 2017-03-11 09:12 | NUR ---
Called and left voicemail for swing[facility] coordinator at [facility] with swingbed referral, waiting call back.
--- NOTE | 2017-03-11 13:33 | NUR ---
Talked with Ariel [facility] Coordinator this morning and faxed referral, she called back and left me a voicemail that the information I sent looks okay to them, just to call when closer to time of discharge with an update. I had told her may be ready for dc tomorrow so will update her in the morning when we know if pt ready for dc or will be another day or so. Will follow.
--- NOTE | 2017-03-11 15:52 | NUR ---
Significant Event: Patient' v/s stable. Alert and orientated to self, and time. Drowsy from surgery but able to follow commands. Does have restless moments, haullcinations at times. Patient is on 2L NC. Sinus rhythm, Blood pressures 150s-160s systolic. Labetolol PRN for systolic greater than 180. Weller for accurate I and O. IV to right wrist, LR at 50ml/hr. Clear liquid diet AAT. 4 trochar sites to abdomen, dressings clean, dry, and intact. Denies pain at this time. Follow up: Referral sent for swing bed in [place] at time of discharge.
--- NOTE | 2017-03-12 03:55 | NUR ---
Significant Event: A/0X3. FORGETFUL DROWSY AT THE BEGINNING OF SHIFT. BED/CHAIR ALARM ON AT ALL TIMES. TURNS SELF. AFEBRILE. VSS ON RA. NORCO GIVEN X1. LAST DOSE WAS AT 2034 FOR SORNESS TO SURGICAL SITE. PATIENT WAS ABLE TO FIND RELIEF AND NO C/O OF PAIN THE REST OF THE SHIFT. PATIENT IS RESTING COMFORTABLY IN BED. IV TO R) WRIST WITH LR@ 50 MLS/H. MCCRARY PRESENT WITH 500MLS OUT. NO BM THIS SHIFT. LAP SITES X4. DRESSINGS C/D/I. Follow up: CONTINUE WITH PLAN OF CARE.
[2017-03-12 05:25] LABS: ANION GAP 11.6 (10.0-19.0); CALCIUM 8.5 mg/dL (8.5-10.5); CREATININE 0.5 mg/dL (0.5-1.1); MAGNESIUM 2.2 mg/dL (1.8-2.6); POTASSIUM 3.6 mMol/L (3.7-5.1)
--- NOTE | 2017-03-12 13:53 | NUR ---
Called and talked with may Kaur coordinator for [facility], they will accept when ready for discharge, tomorrow or Friday. Will put Dr Melgoza phone number on chart for physician to call to accept, as well as nurse number to call report, . Faxed update to them.
--- NOTE | 2017-03-12 16:08 | NUR ---
Significant Event: Patient A/O x 3. VSS. 1PA Pt had cholecystectomy 03/11. Abd round, distended, and firm. Lap sites x4. Dressings are c/d/i. [place] administered at 1458. Pt advanced to regular diet at lunch and tolerated it well. Mendoza dc'd at 1400. No void since mendoza removal. No BM this shift - started miralax. Possible d/c to [facility] 03/13. Follow up: Continue plan of care.
--- NOTE | 2017-03-13 04:54 | NUR ---
Significant Event: PT UP TO RECLINER AT START OF SHIFT, DENIES NEED FOR PAIN MEDICATIONS, OR THE NEED TO VOID. ABD DRESSINGS C/D/I X 4. NO DRAINAGE NOTED. ABD IS DISTENDED, BUT NORMAL FOR PT. PT IS ALERT AND ORINETED, AND COOPERATIVE WITH CARES. UP THE BATHROOM BEFORE BED AND ABLE TO VOID 100 ML. NOTED TO HAVE TEMP OF 100.3 THIS AM, BUT STATES WAS TOO WARM WITH COVERS. R) KNEE IS MORE SWOLLEN THEN L) GAIT MORE UNSTEADY THIS AM, AND C/O PAIN TO R) KNEE. GIVEN 1 NORCO X 2 LAST AT 0325 FOR THE R) KNEE PAIN. STATES ABD. DISCOMFORT IS TOLERABLE. MICHAELLE. PNEUMATICS IN PLACE FOR DVT PREVENTION. Follow up: D/C TO [facility] TODAY.
[2017-03-13 05:00] LABS: ALBUMIN 2.2 gm/dL (3.5-5.0); ANION GAP 10.7 (10.0-19.0); CALCIUM 8.1 mg/dL (8.5-10.5); CREATININE 0.5 mg/dL (0.5-1.1); POTASSIUM 3.7 mMol/L (3.7-5.1); TOTAL BILIRUBIN 0.8 mg/dL (0.0-1.5); TOTAL PROTEIN 5.3 g/dL (6.0-8.4)
--- NOTE | 2017-03-13 09:22 | NUR ---
PATIENT A/OX3, LITTLE FORGETFUL AT TIMES. PT. GETS UP 1 ASSIST WITH WALKER/GAIT BELT IN ROOM. VSS ON ROOM AIR. NO COMPLAINTS OF PAIN, EXCEPT TO RIGHT KNEE, HAS 1-2+ SWELLING, PT. STATES THIS A NORMAL FOR HER. BELLY ROUND/SOFT, NO BM SINCE 03/10, STARTED ON MIRALAX YESTERDAY, BOWEL SOUNDS ACTIVE. LAP ALINA SITES TO ABDOMEN X4, ALL SUTURES WITH STERI-STRIPS INTACT, OPEN TO AIR, NO DRAINAGE/BRUISING NOTICED TO SITES. IV REMOVED FROM RIGHT WRIST WITHOUT DIFFICULTLY. VOIDS FINE, MCCRARY D/C'D YESTERDAY @ 1400, PT. HAS VOIDED X2 SINCE REMOVAL. NEEDS ENCOURAGEMENT TO DRINK MORE.
--- NOTE | 2017-03-13 11:49 | NUR ---
Called [facility] and talked with Genesis Barajas, long term care social worker, they will accept to swingbed today. Will have nurse call report and will have Dr Sanders call Dr Melgoza to accept. Will fax orders. Called Dr Sanders and he will round on patient soon. Talked with patient and daughter and let them know, daughter transporting.
== END 2017-03-13 12:49 | disposition swing bed (61) | DRG 854 ==
LOC: GMSU 08:31 → GICU 03-07 21:45 → GPCU 03-09 14:40
PROVIDERS: Internal Medicine; Registered Nurse; ADMIT Internal Medicine
PROC: 0F798DZ Dilation of Common Bile Duct with Intraluminal Device, Via Natural or Artificial Opening Endoscopic (ICD-10-PCS; principal; 2017-03-05)
PROC: 0FT44ZZ Resection of Gallbladder, Percutaneous Endoscopic Approach (ICD-10-PCS; 2017-03-11)
DX: A41.9 Sepsis, unspecified organism (principal); K83.0 Cholangitis; E87.6 Hypokalemia; I10 Essential (primary) hypertension; K80.70 Calculus of gallbladder and bile duct without cholecystitis without obstruction
CPT/HCPCS: C1769; J0360; J1100; J1335; J1650; J1940; J2405; J3010; J3480; J7030; J7050; J7120